=== PATIENT | female | born 1940 | race Caucasian/White ===

== ENCOUNTER 2018-02-28 11:41 | Emergency (ER) | payer MEDICARE ==
[~2018-02-28] VITALS: Ht 162.5 cm; Wt 68.0 kg
--- NOTE | ~2018-02-28 | EKG ---
[place], [place] ELECTROCARDIOGRAM REPORT NAME: FANG DEMPSEY UNIT #: [id number] ROOM: DOCTOR: SANDRA DRAFT REPORT BIRTHDATE: [birth year] [facility] Test Date: 2018-02-28 Test Time: 12:07:40 Pat Name: FANG DEMPSEY Department: Room: Gender: F [employer] Tender: : 1940 Requested By: VICKIE CHILDERS Order Number: [id number] Reading MD: Measurements Intervals [place] Rate: 97 P: 37 [place]: 176 QRS: -14 QRSD: 91 T: 48 QT: 342 QTc: 435 Interpretive Statements Sinus rhythm LVH by voltage No previous ECG available for comparison CM:EKGRPT:ELECTROCARDIOGRAM REPORT [id number] VICKIE FLORES DRAFT REPORT VICKIE CHILDERS MD
[2018-02-28 12:18] LABS: BASO % 0.4 % (0.0-1.0); EOS % 0.4 % (1.0-4.0); HEMATOCRIT 40.8 % (37.0-47.0); HEMOGLOBIN 13.2 g/dl (12.0-16.0); LYMPH # 3.4 10*3/uL (1.3-4.4); LYMPH % 47.9 % (27.0-41.0); MEAN CELL VOLUME 95.3 fl (81.0-99.0); MEAN CORPUSCULAR HGB 30.8 pg (27.0-31.0); MEAN CORPUSCULAR HGB CONC 32.4 g/dl (33.0-37.0); MEAN PLATELET VOLUME 10.5 fl (9.6-12.3); MONO # 0.7 10*3/uL (0.1-1.0); MONO % 10.6 % (3.0-9.0); NEUT # 2.8 10*3/uL (2.3-7.9); NEUT % 40.6 % (47.0-73.0); PLATELET COUNT AUTOMATED 177 10*3/uL (130-400); RED BLOOD COUNT 4.28 10*6/uL (4.10-5.10); RED CELL DISTRI WIDTH 14.8 % (0-14.5)
[2018-02-28] MEDS ORDERED: COZAAR50 M1 PO (12:20)
[2018-02-28] MEDS ORDERED: ROSUVASTATIN CA20 MG PO (12:24)
[2018-02-28] MEDS ORDERED: WARFARIN SOD5 MG PO (12:24)
[2018-02-28] MEDS ORDERED: METOPROLOL SUC100 M1 PO (12:25)
[2018-02-28 12:27] LABS: ACT PARTIAL THROMBO TIME 26.6 SECONDS (20.8-31.5); INTERNATIONAL NORM RATIO 2.1 (2.0-3.5)
[2018-02-28 12:34] LABS: ALBUMIN 3.4 gm/dl (3.1-4.5); ALKALINE PHOSPHATASE 70 U/L (45-117); BUN 17 mg/dl (7-24); CHLORIDE 105 mmol/L (98-107); CREATININE 0.93 mg/dL (0.55-1.02); POTASSIUM 4.3 mmol/L (3.5-5.1); SGOT/AST 21 IU/L (3-35); SGPT/ALT 21 U/L (12-78); SODIUM 140 mmol/L (136-145); TOTAL PROTEIN 6.9 gm/dL (6.4-8.2)
[2018-02-28 12:35] LABS: TROPONIN I < 0.015 ng/ml (<0.045)
== END 2018-02-28 19:52 | disposition short-term general hospital (02) ==
LOC: ED 11:41
PROVIDERS: Emergency Medicine
DX: G25.2 Other specified forms of tremor (principal); R47.01 Aphasia; R26.2 Difficulty in walking, not elsewhere classified; R47.9 Unspecified speech disturbances; R79.1 Abnormal coagulation profile; Z79.899 Other long term (current) drug therapy; Z79.02 Long term (current) use of antithrombotics/antiplatelets; Z86.718 Personal history of other venous thrombosis and embolism

== ENCOUNTER 2025-01-01 21:58 | Emergency (ER) | payer MEDICARE ==
[~2025-01-01] VITALS: Ht 185.4 cm; Wt 68.0 kg
[~2025-01-01 21:58] MED LIST: COZAAR50 M1 PO; METOPROLOL SUC100 M1 PO; ROSUVASTATIN CA20 MG PO; WARFARIN SOD5 MG PO
[2025-01-01 22:18] LABS: BASO # 0.0 10*3/uL (0.0-0.1); BASO % 0.8 % (0.0-1.0); EOS # 0.2 10*3/uL (0.0-0.4); EOS % 3.3 % (1.0-4.0); MEAN CELL VOLUME 101.0 fl (81.0-99.0); MEAN CORPUSCULAR HGB 31.5 pg (27.0-31.0); MEAN PLATELET VOLUME 11.3 fl (9.6-12.3); MONO # 0.9 10*3/uL (0.1-1.0); MONO % 18.0 % (3.0-9.0); NEUT # 1.3 10*3/uL (2.3-7.9); NEUT % 27.5 % (47.0-73.0); NUCLEATED RED BLOOD CELL 0.0 % (0.0-0.0); NUCLEATED RED BLOOD CELL 0.0 10*3/uL (0.0-0.0); PLATELET COUNT AUTOMATED 172 10*3/uL (130-400); RED CELL DISTRI WIDTH 16.3 % (0-14.5)
[2025-01-01 22:37] LABS: BUN 22.0 mg/dl (9-23)
[2025-01-01] MEDS ORDERED: POTASSIUM CHLORIDE 20 MEQ TAB PO ONE (22:45)
== END 2025-01-02 07:43 | disposition home or self-care (01) ==
LOC: ED 21:58
PROVIDERS: Internal Medicine
DX: M71.21 Synovial cyst of popliteal space [Baker], right knee (principal); E87.6 Hypokalemia; N28.9 Disorder of kidney and ureter, unspecified; R22.41 Localized swelling, mass and lump, right lower limb; D50.9 Iron deficiency anemia, unspecified